=== PATIENT | female | born 1940 | race Caucasian/White ===

== ENCOUNTER 2016-10-30 13:00 | Outpatient (CLI) | payer MEDICARE, OTHER | END 2016-10-30 13:01 | disposition home or self-care (01) | LOC: RT 13:00 | PROVIDERS: ATTEND Internal Medicine | DX: R07.9 Chest pain, unspecified (principal) | CPT/HCPCS: 93005 ==

== ENCOUNTER 2016-11-10 11:11 | Outpatient (CLI) | payer MEDICARE, OTHER ==
[2016-11-10 19:16] LABS: ALBUMIN/GLOBULIN RATIO 1.6 (1.0-2.2); BILIRUBIN,TOTAL 0.6 mg/dL (0.2-1.0); BUN - BLOOD UREA NITROGEN 18 mg/dL (6-20); CALCIUM 9.7 mg/dL (8.5-10.3); CARBON DIOXIDE - CO2 27 mmol/L (21-32); CHLORIDE 104 mmol/L (101-111); CHOL/HDL RATIO 3.3 (<4.4); CHOLESTEROL 277 mg/dL; CREATININE 0.7 mg/dL (0.4-1.0); GFR - MDRD 81 (>89); GLUCOSE 88 mg/dL (70-100); HDL CHOLESTEROL 83 mg/dL; POTASSIUM 4.3 mmol/L (3.5-5.0); SODIUM 139 mmol/L (135-145); TRIGLYCERIDES 140 mg/dL; URIC ACID 4.5 mg/dL (2.6-7.2); VLDL CHOLESTEROL 28 mg/dL
[2016-11-10 19:30] LABS: TOTAL T3 0.86 ng/mL (0.87-1.78)
[2016-11-10 19:39] LABS: THYROID STIMULATING HORMONE 5.32 uIU/mL (0.34-5.60)
[2016-11-12 12:52] LABS: ANA SCREEN NEGATIVE (NEGATIVE)
== END 2016-11-10 11:12 | disposition home or self-care (01) ==
LOC: LAB.F 11:11
PROVIDERS: ATTEND Internal Medicine
DX: E78.4 Other hyperlipidemia (principal); E55.9 Vitamin D deficiency, unspecified; M25.9 Joint disorder, unspecified; E03.9 Hypothyroidism, unspecified; R74.8 Abnormal levels of other serum enzymes
CPT/HCPCS: 36415; 80053; 80061; 82306; 83970; 84439; 84443; 84480; 84550; 86038; 86140; 86376

== ENCOUNTER 2017-08-18 13:53 | Outpatient (CLI) | payer MEDICARE, OTHER ==
--- NOTE | 2017-08-19 15:52 | Mammography Report ---
DIGITAL SCREENING MAMMOGRAM: 08/18/2017 CLINICAL INDICATION: A 77-year-old with history of benign biopsy, for screening. COMPARISON: 07/2016, 07/2015, 06/2014, 05/2013, 05/2012. TECHNIQUE: Routine CC and MLO projections were obtained of the breasts. FINDINGS: The breasts again demonstrate heterogeneously dense fibroglandular parenchyma bilaterally. Coarse, typically benign calcifications are present. Postbiopsy changes in the left breast are stable. No suspicious masses, clustered microcalcifications, or regions of architectural distortion are identified. IMPRESSION: BENIGN FINDINGS. RECOMMENDATION: ROUTINE ANNUAL SCREENING UNLESS OTHERWISE CLINICALLY INDICATED. BIRADS CATEGORY 2-BENIGN FINDINGS. STANDARD QUALIFYING STATEMENTS: 1. This examination was reviewed with the aid of Computer-Aided Detection (CAD). 2. A negative or benign imaging report should not delay biopsy if clinically suspicious findings are present. Consider surgical consultation if warranted. More than 5% of cancers are not identified by imaging. 3. Dense breasts may obscure an underlying neoplasm. TD: 08/19/2017 15:50
== END 2017-08-18 13:54 | disposition home or self-care (01) ==
LOC: DI 13:53
PROVIDERS: ATTEND Internal Medicine
DX: Z12.31 Encounter for screening mammogram for malignant neoplasm of breast (principal)
CPT/HCPCS: 77067

== ENCOUNTER 2018-09-15 15:09 | Outpatient (CLI) | payer MEDICARE, OTHER ==
--- NOTE | 2018-09-16 08:42 | Mammography Report ---
Reason: SCREENING MAMMO Procedure Date: 09/15/2018 Accession Number: [id number] / [id number] Procedure: MELINDA - Screening Mammo w/Francisco CPT Code: FULL RESULT: EXAM: Screening Mammo w/Francisco DATE: 09/15/2018 4:02 PM CLINICAL HISTORY: Screening encounter. No reported risk factors. TECHNIQUE: (B) - Bilateral CC, laterally exaggerated CC, MLO views were obtained. COMPARISON: 08/18/2017 through 06/23/2013. PARENCHYMAL PATTERN: (D) - The breast(s) demonstrate(s) heterogeneously dense fibroglandular parenchyma. FINDINGS: There are coarse typically benign calcifications. A well-circumscribed isodense nodule in the upper central right breast approximately 4.8 cm from the nipple on the 3-D cc image 33 is demonstrated dating back to at least 2013 and therefore typically benign. There are no suspicious masses, calcifications, or areas of distortion. IMPRESSION: Benign findings. BI-RADS category 2. RECOMMENDATION: (ANNUAL) - Recommend routine annual screening mammography. BI-RADS CATEGORY: (2) - Benign Findings. STANDARD QUALIFYING STATEMENTS: 1. This examination was not reviewed with the aid of Computer-Aided Detection (CAD). 2. A negative or benign imaging report should not preclude biopsy if clinically suspicious findings are present. 3. Dense breasts may obscure an underlying neoplasm. 4. This examination was reviewed with the aid of 3D breast imaging (tomosynthesis).
== END 2018-09-15 15:10 | disposition home or self-care (01) ==
LOC: DI 15:09
DX: Z12.31 Encounter for screening mammogram for malignant neoplasm of breast (principal)
CPT/HCPCS: 77063; 77067

== ENCOUNTER 2018-11-09 08:49 | Outpatient (CLI) | payer MEDICARE, OTHER ==
[2018-11-09 09:21] LABS: BASOPHILS # (AUTO) 0.2 10^3/uL (0.0-0.1); BASOPHILS % (AUTO) 2.6 %; EOSINOPHILS # (AUTO) 0.2 10^3/uL (0.0-0.7); EOSINOPHILS % (AUTO) 3.5 %; HGB - HEMOGLOBIN 15.9 g/dL (12.0-16.0); LYMPHOCYTES # (AUTO) 1.8 10^3/uL (1.5-3.5); LYMPHOCYTES % (AUTO) 29.4 %; MEAN CORPUSCULAR HEMOGLOBIN 28.7 pg (27.0-31.0); MEAN CORPUSCULAR HGB CONC 33.2 g/dL (32.0-36.0); MEAN CORPUSCULAR VOLUME 86.4 fL (81.0-99.0); MEAN PLATELET VOLUME 6.4 fL (7.9-10.8); MONOCYTES # (AUTO) 0.4 10^3/uL (0.0-1.0); MONOCYTES % (AUTO) 7.1 %; NEUTROPHILS # (AUTO) 3.5 10^3/uL (1.5-6.6); NEUTROPHILS % (AUTO) 57.4 %; PLT - PLATELET COUNT 268 10^3/uL (130-450); RED BLOOD COUNT 5.54 10^6/uL (4.20-5.40); RED CELL DISTRIBUTION WIDTH 13.3 % (12.0-15.0); WHITE BLOOD COUNT 6.1 x10^3/uL (4.8-10.8)
[2018-11-09 09:37] LABS: HB2 TOTAL 16.4 g/dL; HEMOGLOBIN A1C 0.64 g/dL; HEMOGLOBIN A1C % 5.7 % (4.6-6.2)
[2018-11-09 09:46] LABS: % IRON SATURATION 24 % (20-50); CHOL/HDL RATIO 3.5 (<4.4); CHOLESTEROL 241 mg/dL; HDL CHOLESTEROL 69 mg/dL; IRON 88 ug/dL (28-170); LDL CHOLESTEROL,CALCULATED 147 mg/dL; LDL/HDL RATIO 2.1 (<4.4); TOTAL IRON BINDING CAPACITY 368 ug/dL (250-450); TRANSFERRIN 263 mg/dL (192-382); VLDL CHOLESTEROL 25 mg/dL
[2018-11-09 09:48] LABS: RHEUMATOID FACTOR NEGATIVE (Negative)
[2018-11-09 09:58] LABS: THYROID STIMULATING HORMONE 2.53 uIU/mL (0.34-5.60)
[2018-11-09 10:00] LABS: FREE T4 (FREE THYROXINE) 1.23 ng/dL (0.58-1.64)
[2018-11-09 10:07] LABS: CRP - C-REACTIVE PROTEIN < 1.0 mg/dL (0-1.0)
[2018-11-09 10:09] LABS: FOLATE 17.77 ng/mL (5.90 - >24.8)
== END 2018-11-09 08:50 | disposition home or self-care (01) ==
LOC: LAB 08:49
PROVIDERS: ATTEND Internal Medicine
DX: M13.0 Polyarthritis, unspecified (principal); E55.9 Vitamin D deficiency, unspecified; E03.9 Hypothyroidism, unspecified; R53.83 Other fatigue; E78.01 Familial hypercholesterolemia
CPT/HCPCS: 36415; 80061; 82306; 82607; 82746; 83036; 83540; 83721; 84439; 84443; 84466; 85025; 86140; 86200; 86430

== ENCOUNTER 2019-10-05 17:20 | Outpatient (CLI) | payer MEDICARE, OTHER | END 2019-10-05 17:21 | disposition home or self-care (01) | LOC: COV 17:20 | PROVIDERS: ATTEND Family Medicine | DX: R06.02 Shortness of breath (principal); R53.83 Other fatigue; R19.7 Diarrhea, unspecified; R43.9 Unspecified disturbances of smell and taste | CPT/HCPCS: 81599 ==

== ENCOUNTER 2019-10-13 11:33 | Outpatient (CLI) | payer MEDICARE, OTHER ==
--- NOTE | 2019-10-13 23:47 | XRAY Report ---
Reason: UNABLE TO TAKE DEEP BREATH,DYSPNEA, UNSPECIFIED Procedure Date: 10/13/2019 Accession Number: [id number] / [id number] Procedure: XR - Chest 2 View X-Ray CPT Code: 51037 Final Report FULL RESULT: EXAM: CHEST RADIOGRAPHY EXAM DATE: 10/13/2019 11:42 AM. CLINICAL HISTORY: UNABLE TO TAKE DEEP BREATH, DYSPNEA, UNSPECIFIED. COMPARISON: None. TECHNIQUE: 2 views. FINDINGS: Lungs/Pleura: No consolidation, airspace disease, pleural effusion or pneumothorax. Mild left base linear atelectasis or scarring. Mediastinum: Heart and mediastinal contours are unremarkable. IMPRESSION: No acute cardiopulmonary disease seen. RADIA
== END 2019-10-13 11:34 | disposition home or self-care (01) ==
LOC: DI 11:33
PROVIDERS: ATTEND Family Medicine
DX: R06.00 Dyspnea, unspecified (principal)
CPT/HCPCS: 71046

== ENCOUNTER 2019-10-19 09:13 | Emergency (ER) | payer MEDICARE, OTHER ==
[2019-10-19] MEDS ORDERED: ALBUTEROL 1 PUFF INH STA (09:35)
[2019-10-19] MEDS ORDERED: DEXAMETHASONE 10 MG/ML VIAL IVP STA (09:35)
--- NOTE | 2019-10-19 09:38 | ED Physician Documentation ---
PD HPI DYSPNEA - Stated complaint Stated Complaint: SOA/CHEST PX - Chief complaint Chief Complaint: Resp - History obtained from History obtained from: Patient - History of Present Illness Timing - onset: How many months ago (2) Timing - onset during: Rest Timing - duration: Months (2) Timing - details: Gradual onset, Still present, Waxing and waning Inciting event(s): URI Improved by: Rest Worsened by: Exertion, Coughing Associated symptoms: Cough, Wheezing, Chest pain / discomfort. No: Hemoptysis, Bilateral edema, Unilateral edema Similar symptoms before: No diagnosis Recently seen: Clinic - Additional information Additional information: 79-year-old female has had a problem with a cough and congestion for the past 2 months. She is complaining of exertional dyspnea and wheezing especially at night as well as some anterior chest pain. She has not had these symptoms previously. She has gone into see her primary care physician after getting a negative COVID test and had a chest x-ray done chest x-ray was reported as normal. She did have some linear atelectasis in the left base. Diagnostic pulmonary function tests have been ordered and they have not been done yet. Patient has persistence of symptoms and is come to the emergency department today with shortness of breath and chest pain. PD PAST MEDICAL HISTORY - Past Surgical History Past Surgical History: Yes Ortho: Hip replacement, Knee replacement, Spine surgery - Present Medications Home Medications: Ambulatory Orders Medication Instructions Recorded Confirmed Aspirin [Adult Low Dose Aspirin EC] 81 mg PO DAILY 03/27/17 03/27/17 Lactulose [Generlac] 15 ml PO QID PRN #150 ml 03/27/17 Levothyroxine [Synthroid] 88 mcg PO DAILY 03/27/17 03/27/17 Magnesium Oxide [Magnesium] 400 mg PO DAILY 03/27/17 03/27/17 Omeprazole [PriLOSEC] 20 mg PO DAILY 03/27/17 03/27/17 Zolpidem [Ambien] 5 mg PO DAILY 03/27/17 03/27/17 oxyCODONE [Roxicodone] 5 mg PO QID PRN 03/27/17 03/27/17 Albuterol Sulf [Ventolin Hfa 1 - 2 puffs INH Q4HR PRN #1 inhaler 10/19/19 Inhaler] Azithromycin [Zithromax] 250 mg PO DAILY #6 tablet 10/19/19 predniSONE [Prednisone] 40 mg PO DAILY #10 tablet 10/19/19 - Allergies Allergies/Adverse Reactions: Allergies Allergy/AdvReac Type Severity Reaction Status Date / Time diazepam [From Valium] Allergy Unknown Verified 03/27/17 18:06 meperidine [From Demerol] Allergy Anaphylaxis Verified 03/27/17 18:06 epinephrine AdvReac Unknown Verified 03/27/17 18:06 - Social History Does the pt smoke?: No Smoking Status: Never smoker Does the pt drink ETOH?: No Does the pt have substance abuse?: No Results - Vitals Vitals: Vital Signs - 24 hr 10/19/19 10/19/19 10/19/19 09:26 09:30 09:47 Temperature 36.8 C Heart Rate 88 89 70 Respiratory 16 19 17 Rate Blood Pressure 152/82 H 153/81 H O2 Saturation 99 98 10/19/19 10/19/19 10/19/19 11:14 11:29 11:34 Temperature 527.7 C H Heart Rate 72 78 80 Respiratory 18 21 16 Rate Blood Pressure 139/79 H 135/87 H 142/75 H O2 Saturation 95 95 96 Oxygen O2 Source Room air - EKG (time done) 0922 Rate: Rate (enter#) (87) Intervals: Prolonged AL QRS: Poor R wave progression Ischemia: Q waves Compare to prior EKG: Changed from prior EKG (SPT 10-30-2016 AL interval is prolonged. ) Computer interpretation: Agree with computer - Labs Labs: Laboratory Tests 10/19/19 10/19/19 10/19/19 09:28 09:28 09:28 WBC 6.6 RBC 5.27 Hgb 15.4 Hct 46.4 MCV 88.0 MCH 29.2 MCHC 33.2 RDW 13.1 Plt Count 242 MPV 8.7 Neut # (Auto) 4.2 Lymph # (Auto) 1.5 [place] # (Auto) 0.4 Eos # (Auto) 0.3 Baso # (Auto) 0.1 Absolute Nucleated RBC 0.00 Nucleated RBC % 0.0 D-Dimer Sodium 136 Potassium 3.8 Chloride 106 Carbon Dioxide 21 Anion Gap 9.0 BUN 16 Creatinine 0.7 Estimated GFR (MDRD) 81 L Glucose 124 H Calcium 8.9 Total Bilirubin 0.7 AST 25 ALT 17 Alkaline Phosphatase 104 Troponin I High Sens 3.4 B-Natriuretic Peptide Total Protein 6.8 Albumin 3.8 Globulin 3.0 Albumin/Globulin Ratio 1.3 Lipase 43 10/19/19 10/19/19 09:28 09:28 WBC RBC Hgb Hct MCV MCH MCHC RDW Plt Count MPV Neut # (Auto) Lymph # (Auto) [place] # (Auto) Eos # (Auto) Baso # (Auto) Absolute Nucleated RBC Nucleated RBC % D-Dimer 259.3 H Sodium Potassium Chloride Carbon Dioxide Anion Gap BUN Creatinine Estimated GFR (MDRD) Glucose Calcium Total Bilirubin AST ALT Alkaline Phosphatase Troponin I High Sens B-Natriuretic Peptide 42 Total Protein Albumin Globulin Albumin/Globulin Ratio Lipase - Rads (name of study) chest Radiology: Prelim report reviewed (Impression: No acute cardiopulmonary abnormality demonstrated.), EMP read indepedently, See rad report PD MEDICAL DECISION MAKING - ED course Complexity details: reviewed old records, reviewed results, re-evaluated patient, considered differential, d/w patient ED course: 79-year-old female with cough and dyspnea has a normal-appearing chest x-ray and has some mild response to the albuterol. She is administered dexamethasone as well. She does feel improved at the time of discharge. We were not able to provide pulmonary function testing as there are only 2 spots per day and testing can take up to 2 hours. I will discharge the patient with a diagnosis of asthmatic bronchitis and provide an inhaler, a short course of prednisone and azithro. Departure - Departure Disposition: 01 Home, Self Care Clinical Impression: Asthmatic bronchitis Qualifiers: Asthma severity: mild Asthma persistence: intermittent Asthma complication type: with acute exacerbation Qualified Code(s): J45.21 - Mild intermittent asthma with (acute) exacerbation Condition: Stable Instructions: ED Bronchitis Asthmatic Follow-Up: Lui Lan MD [Primary Care Provider] - Prescriptions: Albuterol Sulf [Ventolin Hfa Inhaler] 1 - 2 puffs INH Q4HR PRN #1 inhaler PRN Reason: Shortness Of Air/Wheezing Azithromycin [Zithromax] 250 mg PO DAILY #6 tablet predniSONE [Prednisone] 40 mg PO DAILY #10 tablet Discharge Date/Time: 10/19/19 11:35
[2019-10-19 09:40] LABS: BASOPHILS # (AUTO) 0.1 10^3/uL (0.0-0.1); BASOPHILS % (AUTO) 0.9 %; EOSINOPHILS # (AUTO) 0.3 10^3/uL (0.0-0.7); EOSINOPHILS % (AUTO) 4.4 %; HGB - HEMOGLOBIN 15.4 g/dL (12.0-16.0); LYMPHOCYTES # (AUTO) 1.5 10^3/uL (1.5-3.5); LYMPHOCYTES % (AUTO) 23.3 %; MEAN CORPUSCULAR HEMOGLOBIN 29.2 pg (27.0-31.0); MEAN CORPUSCULAR HGB CONC 33.2 g/dL (32.0-36.0); MEAN PLATELET VOLUME 8.7 fL (7.9-10.8); MONOCYTES # (AUTO) 0.4 10^3/uL (0.0-1.0); MONOCYTES % (AUTO) 6.5 %; NEUTROPHILS # (AUTO) 4.2 10^3/uL (1.5-6.6); NEUTROPHILS % (AUTO) 64.6 %; PLT - PLATELET COUNT 242 10^3/uL (130-450); RED BLOOD COUNT 5.27 10^6/uL (4.20-5.40); RED CELL DISTRIBUTION WIDTH 13.1 % (12.0-15.0); WHITE BLOOD COUNT 6.6 x10^3/uL (4.8-10.8)
[2019-10-19 09:54] LABS: ALBUMIN 3.8 g/dL (3.2-5.5); ALBUMIN/GLOBULIN RATIO 1.3 (1.0-2.2); BILIRUBIN,TOTAL 0.7 mg/dL (0.2-1.0); CALCIUM 8.9 mg/dL (8.5-10.3); CREATININE 0.7 mg/dL (0.4-1.0); TOTAL PROTEIN 6.8 g/dL (6.7-8.2)
--- NOTE | 2019-10-19 10:13 | XRAY Report ---
Reason: Chest pain Procedure Date: 10/19/2019 Accession Number: [id number] / [id number] Procedure: XR - Chest 1 View X-Ray CPT Code: 17043 Final Report FULL RESULT: EXAM: CHEST RADIOGRAPHY EXAM DATE: 10/19/2019 09:39 AM. CLINICAL HISTORY: Chest pain. COMPARISON: CHEST 2 VIEW 10/13/2019 11:37 AM. TECHNIQUE: 1 view. FINDINGS: Lungs/Pleura: No focal opacities evident. No pleural effusion. No pneumothorax. Mediastinum: Within exam limitations, the cardiomediastinal contour is normal. Other: None. IMPRESSION: No acute cardiopulmonary abnormality demonstrated. RADIA
[2019-10-19 11:35] VITALS: BP 142/75
== END 2019-10-19 11:35 | disposition home or self-care (01) ==
LOC: ED 09:13
DX: J45.21 Mild intermittent asthma with (acute) exacerbation (principal); I44.0 Atrioventricular block, first degree; Z79.82 Long term (current) use of aspirin
CPT/HCPCS: 36415; 71045; 80053; 83690; 83880; 84484; 85025; 85379; 93005; 94640; 96374; 99281

== ENCOUNTER 2019-10-22 12:16 | Outpatient (CLI) | payer MEDICARE, OTHER ==
[~2019-10-22 12:16] MED LIST: ALBUTEROL 1 PUFF INH STA
== END 2019-10-22 12:17 | disposition home or self-care (01) ==
LOC: RT 12:16
PROVIDERS: ATTEND Family Medicine
DX: R06.00 Dyspnea, unspecified (principal)
CPT/HCPCS: 94010

== ENCOUNTER 2019-12-12 12:25 | Outpatient (CLI) | payer MEDICARE, OTHER ==
--- NOTE | 2019-12-14 07:08 | Mammography Report ---
BILATERAL DIGITAL SCREENING MAMMOGRAM 3D/2D: 12/12/2019 CLINICAL: Routine screening. Comparison is made to exams dated: 09/15/2018 mammogram, 08/18/2017 mammogram, 08/12/2016 mammogram, an d 07/31/2015 mammogram - [facility]. The tissue of both breasts is heterogeneously d ense. This may lower the sensitivity of mammography. There is a benign calcification in the left breast. There also are benign calcifications in the righ t breast. No significant masses, calcifications, or other findings are seen in either breast. There has been no significant interval change. IMPRESSION: There is no mammographic evidence of malignancy. A 1 year screening mammogram is recommended. This exam was interpreted at Station ID: [id number]. NOTE: For mammograms, a report in lay terms will be sent to the patient. Approximately 15% of breast malignancies will not be visualized mammographically. In the management of a palpable breast mass, a negative mammogram must not discourage biopsy of a clinically suspicious lesion. Electronically Signed By: Tricia lockett/damián:12/12/2019 16:55:31 ACR BI-RADS Category 2: Benign Finding(s) 3342F PARENCHYMAL PATTERN: (D) - The breast(s) demonstrate(s) heterogeneously dense fibroglandular martine roth. BI-RADS CATEGORY: (2) - 2 RECOMMENDATION: (ANNUAL) - Recommend routine annual screening mammography. [id number] 1 year screening LATERALITY: (B)
== END 2019-12-12 12:26 | disposition home or self-care (01) ==
LOC: DI 12:25
PROVIDERS: ATTEND Family Medicine
DX: Z12.31 Encounter for screening mammogram for malignant neoplasm of breast (principal)
CPT/HCPCS: 77063; 77067

== ENCOUNTER 2020-05-09 14:25 | Outpatient (CLI) | payer MEDICARE, OTHER ==
--- NOTE | 2020-05-09 16:30 | XRAY Report ---
PROCEDURE: Cervical Spine 2 View INDICATIONS: ACUTE ON CHRONIC NECK PAIN,HX OF O A TECHNIQUE: 4 view(s) of the cervical spine were acquired. COMPARISON: None. FINDINGS: Bones: No fractures or dislocations to the C7 level. Disc space narrowing and endplate osteophyte fo rmation at multiple levels, worst at C3-C4, C4-C5, and C6-C7 indicating degenerative disc disease. Fa cet hypertrophy throughout the mid and lower cervical spine. The lateral masses of C1 appear intact o n the odontoid view. No suspicious bony lesions. Soft tissues: No prevertebral soft tissue swelling. IMPRESSION: 1. Multilevel degenerative disc and facet disease. 2. No acute fracture. No osseous lesion. If symptoms and/or clinical suspicion for pathology continue , further assessment with repeat plain films, or advanced imaging (e.g., CT, MRI, or bone scan) is re commended for further assessment. Reviewed by: Ricardo Montoya MD on 05/09/2020 4:29 PM PST Approved by: Ricardo Montoya MD on 05/09/2020 4:29 PM PST Station ID: [id number]
== END 2020-05-09 14:26 | disposition home or self-care (01) ==
LOC: DI 14:25
PROVIDERS: ATTEND Family Medicine
DX: M50.31 Other cervical disc degeneration, high cervical region (principal)

== ENCOUNTER 2020-09-12 14:56 | Outpatient (CLI) | payer MEDICARE, OTHER ==
--- NOTE | 2020-09-12 15:46 | XRAY Report ---
PROCEDURE: Ankle 3 View RT INDICATIONS: TWISTED R ANKLE, LAT SIDED PAIN TECHNIQUE: 3 views of the ankle were acquired. COMPARISON: None. FINDINGS: Diffuse osteopenia. No fracture. Scattered subchondral sclerosis and spurring. Lateral soft tissue sw elling is present. There is anatomic alignment. Diffuse midfoot joint degeneration, raising possibili ty of neuropathic arthropathy. IMPRESSION: Lateral soft tissue swelling. No fracture. Diffuse osteopenia and degenerative changes a s above. Reviewed by: Chacorta Zaragoza MD on 09/12/2020 3:45 PM PDT Approved by: Chacorta Zaragoza MD on 09/12/2020 3:45 PM PDT Station ID: [id number]
== END 2020-09-12 14:57 | disposition home or self-care (01) ==
LOC: DI 14:56
PROVIDERS: ATTEND Physician Assistant
DX: M85.871 Other specified disorders of bone density and structure, right ankle and foot (principal); M19.071 Primary osteoarthritis, right ankle and foot; M79.89 Other specified soft tissue disorders

== ENCOUNTER 2021-02-19 13:34 | Outpatient (CLI) | payer MEDICARE, OTHER ==
--- NOTE | 2021-02-20 09:35 | Mammography Report ---
BILATERAL DIGITAL SCREENING MAMMOGRAM 3D/2D: 02/19/2021 CLINICAL: Routine screening. Comparison is made to exams dated: 12/12/2019 mammogram, 09/15/2018 mammogram, 09/15/2018 mammogram, mammogram, 08/18/2017 mammogram, and 08/12/2016 mammogram - [facility]. The tissue of both breasts is heterogeneously dense. This may lower the sensitivity of mammography. There is a benign calcification in the left breast. There also are benign calcifications in the righ t breast. No significant masses, calcifications, or other findings are seen in either breast. There has been no significant interval change. IMPRESSION: BENIGN There is no mammographic evidence of malignancy. A 1 year screening mammogram is recommended. This exam was interpreted at Station ID: [id number]. NOTE: For mammograms, a report in lay terms will be sent to the patient. Approximately 15% of breast malignancies will not be visualized mammographically. In the management of a palpable breast mass, a negative mammogram must not discourage biopsy of a clinically suspicious lesion. Electronically Signed By: Kale Ham M.D. ddp/penrad:02/19/2021 16:17:45 ACR BI-RADS Category 2: Benign Finding(s) 3342F PARENCHYMAL PATTERN: (D) - The breast(s) demonstrate(s) heterogeneously dense fibroglandular parbjy gonzalez. BI-RADS CATEGORY: (2) - 2 RECOMMENDATION: (ANNUAL) - Recommend routine annual screening mammography. [id number] 1 year screening LATERALITY: (B)
== END 2021-02-19 13:35 | disposition home or self-care (01) ==
LOC: DI 13:34
DX: Z12.31 Encounter for screening mammogram for malignant neoplasm of breast (principal)

== ENCOUNTER 2021-10-16 16:08 | Emergency (ER) | payer MEDICARE, OTHER ==
[2021-10-16 16:19] VITALS: BP 134/72
[2021-10-16] MEDS ORDERED: NAPROXEN 250 MG TABLET PO STA (16:44)
--- NOTE | 2021-10-16 16:45 | ED Physician Documentation ---
PD HPI LOWER EXT INJURY - Stated complaint Stated Complaint: L ANKLE INJ - Chief complaint Chief Complaint: Trauma Ext - History obtained from History obtained from: Patient (She was in [place] yesterday and had a trip and fall injuring her left ankle. No other injuries. She is able to walk and bear weight but with significant pain.) - History of Present Illness PD HPI LOW EXT INJURY LOCATION: Left Review of Systems Eyes: reports: Reviewed and negative Nose: reports: Reviewed and negative Cardiac: reports: Reviewed and negative Respiratory: reports: Reviewed and negative PD PAST MEDICAL HISTORY - Past Medical History Endocrine/Autoimmune: HyPOthyroidism - Past Surgical History Past Surgical History: Yes Ortho: Hip replacement, Knee replacement, Spine surgery - Present Medications Home Medications: Ambulatory Orders Medication Instructions Recorded Confirmed Aspirin [Adult Low Dose Aspirin EC] 81 mg PO DAILY 03/27/17 03/27/17 Lactulose [Generlac] 15 ml PO QID PRN #150 ml 03/27/17 Levothyroxine [Synthroid] 88 mcg PO DAILY 03/27/17 03/27/17 Magnesium Oxide [Magnesium] 400 mg PO DAILY 03/27/17 03/27/17 Omeprazole [PriLOSEC] 20 mg PO DAILY 03/27/17 03/27/17 Zolpidem [Ambien] 5 mg PO DAILY 03/27/17 03/27/17 oxyCODONE [Roxicodone] 5 mg PO QID PRN 03/27/17 03/27/17 Albuterol Sulf [Ventolin Hfa 1 - 2 puffs INH Q4HR PRN #1 inhaler 10/19/19 Inhaler] Azithromycin [Zithromax] 250 mg PO DAILY #6 tablet 10/19/19 predniSONE [Prednisone] 40 mg PO DAILY #10 tablet 10/19/19 - Allergies Allergies/Adverse Reactions: Allergies Allergy/AdvReac Type Severity Reaction Status Date / Time diazepam [From Valium] Allergy Unknown Verified 10/16/21 16:14 meperidine [From Demerol] Allergy Anaphylaxis Verified 10/16/21 16:14 epinephrine AdvReac Unknown Verified 10/16/21 16:14 - Social History Does the pt smoke?: No Smoking Status: Never smoker Does the pt drink ETOH?: No Does the pt have substance abuse?: No PD ED PE NORMAL - Vitals Vital signs reviewed: Yes - General General: Alert and oriented X 3, No acute distress - Neck Neck: No bony TTP, C-Spine cleared by NEXUS criteria - Extremities Extremities: Other (Significant bruising over the lateral malleolus and quite tender there. Minimal tenderness over the minimal medial malleolus but she is also tender over the proximal fibula on the left.) - Neuro Neuro: Alert and oriented X 3, Normal speech Results - Vitals Vitals: Vital Signs - 24 hr 10/16/21 16:16 Temperature 36.7 C Heart Rate 93 Respiratory 18 Rate Blood Pressure 134/72 H O2 Saturation 95 Oxygen O2 Source Room air - Rads (name of study) X-rays of the left tib-fib and ankle suggestive of talar dome fracture and ligamentous injury in the ankle Radiology: EMP read contemporaneously PD MEDICAL DECISION MAKING - ED course ED course: 81-year-old woman presents after an isolated left leg injury and is found to have a talar dome fracture and was placed in a boot for comfort and discussed need for follow-up. Departure - Departure Disposition: 01 Home, Self Care Clinical Impression: Talus fracture Qualifiers: Encounter type: initial encounter Fracture type: closed Talus location: dome of talus Fracture alignment: nondisplaced Laterality: left Qualified Code(s): S92.145A - Nondisplaced dome fracture of left talus, initial encounter for closed fracture Left ankle sprain Qualifiers: Encounter type: initial encounter Involved ligament of ankle: deltoid ligament Qualified Code(s): S93.422A - Sprain of deltoid ligament of left ankle, initial encounter Condition: Good Record reviewed to determine appropriate education?: Yes Instructions: ED Sprain Ankle Follow-Up: [facility] [Provider Group] Comments: Follow-up with orthopedics in about a week. You can wear the boot as needed for comfort, okay to gingerly walk on that ankle. Aleve as needed for pain. Call the orthopedics office tomorrow. Ice and elevate is much as possible.
--- NOTE | 2021-10-16 16:47 | XRAY Report ---
PROCEDURE: Ankle 3 View LT INDICATIONS: TRAUMA TECHNIQUE: 3 views of the ankle were acquired. COMPARISON: None FINDINGS: Bones: Tiny cortical step-off noted in the talar dome which could represent osteochondral injury. Ank le mortise is normally aligned. No suspicious bony lesions. Calcaneal bone spurs. Midfoot osteoarthr itis. Soft tissues: No tibiotalar joint effusion. Achilles tendon appears normal. Lateral soft tissue swe lling is noted and ligamentous injury cannot be excluded. IMPRESSION: 1. Tiny cortical step-off involving the talar dome concerning for osteochondral injury. 2. Severe lateral soft tissue swelling concerning for possible ligamentous injury. Consider MRI of th e left ankle for additional evaluation of clinically indicated. Reviewed by: Ame Stone MD, PhD on 10/16/2021 4:46 PM PDT Approved by: Ame Stone MD, PhD on 10/16/2021 4:46 PM PDT Station ID: [id number]
--- OUTSIDE RECORDS SUMMARY | 2021-10-16 16:53 | EXTERNAL MEDICAL SUMMARY RPT | Continuity of Care Document ---
:1940 Author Organization [facility] Address [address] [place] [address] Phone Care Team Providers Name Role Phone Lan Unavailable Unavailable Allergies No information. Encounters No information. Medications date description facility [id number] Levothyroxine Sodium 0.1 MG Oral Tablet [facility] Problems Procedures date description facility [id number] General Physician [facility] [id number] Finding [facility] [id number] Diagnosis [facility] Results No information. Vital Signs date measurement value source 20210911 weight_standard 66.22 lb [id number] weight_metric 30.04 kg 20210911 temperature_standard 98.7 F 20210911 temperature_metric 37.06 C 20210911 height_standard 62 in [id number] height_metric 157.48 cm 20210911 heart_rate 88 /min 20210911 BP_systolic 138 mm[Hg] 20210911 BP_diastolic 70 mm[Hg] 20210911 BMI 26.6 kg/m2
--- NOTE | 2021-10-16 18:01 | XRAY Report ---
PROCEDURE: Tib/Fib LT INDICATIONS: Trauma, pain TECHNIQUE: 2 views of the tibia and fibula were acquired. COMPARISON: FINDINGS: Bones: No fractures or dislocations. No suspicious bony lesions. Small cortical defect in the miguel angel r dome again noted. Soft tissues: No suspicious soft tissue calcifications or masses. IMPRESSION: Unremarkable tibia and fibula radiographs Small cortical defect in the talar dome may reflect osteochondral injury Reviewed by: Parveen Rojas MD on 10/16/2021 5:00 PM DIONY Approved by: Parveen Rojas MD on 10/16/2021 5:00 PM DIONY Station ID: [id number]
== END 2021-10-16 17:40 | disposition home or self-care (01) ==
LOC: ED 16:08
DX: S92.145A Nondisplaced dome fracture of left talus, initial encounter for closed fracture (principal); S93.422A Sprain of deltoid ligament of left ankle, initial encounter; W01.0XXA Fall on same level from slipping, tripping and stumbling without subsequent striking against object, initial encounter
CPT/HCPCS: 73590; 73610; 99283; A9270

== ENCOUNTER 2021-10-28 06:00 | Outpatient (CLI) | payer MEDICARE, OTHER ==
--- NOTE | 2021-10-28 14:22 | XRAY Report ---
PROCEDURE: Ankle 3 View LT INDICATIONS: ANKLE PAIN TECHNIQUE: 3 views of the ankle were acquired. COMPARISON: Left ankle radiographs 10/16/2021 FINDINGS: Bones: Cortical irregularity at the distal fibula at the level of the syndesmosis. This is concerning for nondisplaced fracture. Subtle lucency at the talar dome is again seen. Ankle mortise is normall y aligned. No suspicious bony lesions. Soft tissues: There is decrease swelling at the lateral malleolus. No significant tibiotalar joint e ffusion. Achilles tendon appears normal. IMPRESSION: Concern for nondisplaced fracture at the distal fibula. Edwards B fracture. Decrease swelling at the la teral malleolus. Subtle lucency at the talar dome is again seen. This could be due to osteochondral injury. Consider further evaluation with CT or MRI. Reviewed by: Mansoor Batres MD on 10/28/2021 2:21 PM PDT Approved by: Mansoor Batres MD on 10/28/2021 2:21 PM PDT Station ID: [id number]
== END 2021-10-28 23:59 | disposition home or self-care (01) ==
LOC: DI.WOS 06:00
PROVIDERS: ATTEND Orthopaedic Surgery
DX: M25.572 Pain in left ankle and joints of left foot (principal); R60.0 Localized edema

== ENCOUNTER 2021-11-26 08:00 | Outpatient (CLI) | payer MEDICARE, OTHER ==
--- NOTE | 2021-11-26 17:29 | XRAY Report ---
PROCEDURE: Ankle 3 View LT INDICATIONS: ANKLE PX TECHNIQUE: 3 views of the ankle were acquired. COMPARISON: 10/28/2021 FINDINGS: Bones: Minimally displaced, subacute fracture of the lateral malleolus redemonstrated. Lucency in the talar dome is stable. Calcaneal bone spurs. Soft tissues: No tibiotalar joint effusion. Achilles tendon appears normal. IMPRESSION: Subacute lateral malleolus fracture. Lucency in the talar dome stable compared to prior exam may represent osteochondral injury. Consider MRI of the left ankle if there is clinical concern for osteochondral injury. Reviewed by: Ame Stone MD, PhD on 11/26/2021 5:28 PM PDT Approved by: Ame Stone MD, PhD on 11/26/2021 5:28 PM PDT Station ID: [id number]
== END 2021-11-26 23:59 | disposition home or self-care (01) ==
LOC: DI.WOS 08:00
PROVIDERS: ATTEND Orthopaedic Surgery
DX: S82.62XA Displaced fracture of lateral malleolus of left fibula, initial encounter for closed fracture (principal)

== ENCOUNTER 2022-06-13 11:30 | Emergency (ER) | payer MEDICARE, OTHER ==
[2022-06-13 12:04] LABS: BILIRUBIN,URINE NEGATIVE (NEGATIVE); GLUCOSE, URINE (UA) NEGATIVE (NEGATIVE); KETONES,URINE (UA) NEGATIVE (NEGATIVE); LEUKOCYTE ESTERASE, URINE SMALL (NEGATIVE); NITRITE,URINE NEGATIVE (NEGATIVE); OCCULT BLOOD,URINE LARGE (NEGATIVE); PROTEIN,URINE NEGATIVE (NEGATIVE); UROBILINOGEN,URINE 0.2 (NORMAL) E.U./dL (NORMAL)
[2022-06-13 12:05] LABS: CLARITY,URINE HAZY (CLEAR)
[2022-06-13 12:10] LABS: BACTERIA,URINE Few /HPF (None Seen); SQUAMOUS EPITHELIAL CELL,UR FEW Squamous (<= Few); WBC,URINE >25 /HPF (0-5)
[2022-06-13] MEDS ORDERED: cephALEXin 250 MG CAPSULE PO STA (12:32)
[2022-06-13] MEDS ORDERED: PHENAZOPYRIDINE 100 MG TABLET PO STA (12:32)
--- NOTE | 2022-06-13 12:33 | ED Physician Documentation ---
History of Present Illness - Stated complaint Stated Complaint: BLOOD ON URINE - Chief complaint Chief Complaint: UTI - History obtained from History obtained from: Patient - History of Present Illness Timing: Yesterday Pain level max: 4 Pain level now: 3 - Additonal information Additional information: 81-year-old female presents to the emergency department complaining of dysuria, urinary frequency and hematuria, started last night. No fevers. No vomiting. Has a burning sensation in her bladder. Worse with urination, nothing makes it better. She states she has not currently on any medications at home. Has not been on any recent antibiotics. Review of Systems Constitutional: denies: Fever, Chills GI: denies: Vomiting, Diarrhea Skin: denies: Rash Musculoskeletal: denies: Neck pain, Back pain Neurologic: denies: Headache PD PAST MEDICAL HISTORY - Past Medical History Past Medical History: Yes Endocrine/Autoimmune: HyPOthyroidism - Past Surgical History Past Surgical History: Yes Ortho: Hip replacement, Knee replacement, Spine surgery - Present Medications Home Medications: Ambulatory Orders Medication Instructions Recorded Confirmed Aspirin [Adult Low Dose Aspirin EC] 81 mg PO DAILY 03/27/17 03/27/17 Lactulose [Generlac] 15 ml PO QID PRN #150 ml 03/27/17 Levothyroxine [Synthroid] 88 mcg PO DAILY 03/27/17 03/27/17 Magnesium Oxide [Magnesium] 400 mg PO DAILY 03/27/17 03/27/17 Omeprazole [PriLOSEC] 20 mg PO DAILY 03/27/17 03/27/17 Zolpidem [Ambien] 5 mg PO DAILY 03/27/17 03/27/17 oxyCODONE [Roxicodone] 5 mg PO QID PRN 03/27/17 03/27/17 Albuterol Sulf [Ventolin Hfa 1 - 2 puffs INH Q4HR PRN #1 inhaler 10/19/19 Inhaler] Azithromycin [Zithromax] 250 mg PO DAILY #6 tablet 10/19/19 predniSONE [Prednisone] 40 mg PO DAILY #10 tablet 10/19/19 Phenazopyridine HCl [Pyridium] 200 mg PO TID PRN #6 tablet 06/13/22 cephALEXin [Keflex] 500 mg PO Q6H #20 cap 06/13/22 - Allergies Allergies/Adverse Reactions: Allergies Allergy/AdvReac Type Severity Reaction Status Date / Time diazepam [From Valium] Allergy Unknown Verified 06/13/22 11:42 meperidine [From Demerol] Allergy Anaphylaxis Verified 06/13/22 11:42 epinephrine AdvReac Unknown Verified 06/13/22 11:42 - Social History Does the pt smoke?: No Smoking Status: Never smoker Does the pt drink ETOH?: No Does the pt have substance abuse?: No PD ED PE NORMAL - Vitals Vital signs reviewed: Yes - General General: Alert and oriented X 3, No acute distress - HEENT HEENT: Moist mucous membranes - Neck Neck: Supple, no meningeal sign - Cardiac Cardiac: RRR, Strong equal pulses - Respiratory Respiratory: No respiratory distress, Clear bilaterally - Abdomen Abdomen: Soft, Non tender, Non distended - Back Back: No CVA TTP - Derm Derm: Warm and dry - Neuro Neuro: Alert and oriented X 3 - Psych Psych: Normal mood, Normal affect Results - Vitals Vitals: Vital Signs - 24 hr 06/13/22 11:38 Temperature 36.4 C L Heart Rate 100 Respiratory 20 Rate Blood Pressure 146/80 H O2 Saturation 99 Oxygen O2 Source Room air - Labs Labs: Laboratory Tests 06/13/22 11:50 Urine Color YELLOW Urine Clarity HAZY Urine pH 6.0 Ur Specific [place] <=1.005 Urine Protein NEGATIVE Urine Glucose (UA) NEGATIVE Urine Ketones NEGATIVE Urine Occult Blood LARGE H Urine Nitrite NEGATIVE Urine Bilirubin NEGATIVE Urine Urobilinogen 0.2 (NORMAL) Ur Leukocyte Esterase SMALL H Urine RBC 6-10 H Urine WBC >25 H Ur Squamous Epith Cells FEW Squamous Urine Bacteria Few Ur Microscopic Review INDICATED Urine Culture Comments INDICATED PD Medical Decision Making - ED course Complexity details: reviewed results, considered differential, d/w patient ED course: Patient with a urinalysis that is consistent with UTI. Will place on Pyridium and antibiotics. Patient is well-appearing, nontoxic. No evidence of pyelonephritis, no indication for IV antibiotics. No evidence of sepsis. Patient counseled regarding signs and symptoms for which I believe and urgent re-evaluation would be necessary. Patient with good understanding of and agreement to plan and is comfortable going home at this time This document was made in part using voice recognition software. While efforts are made to proofread this document, sound alike and grammatical errors may occur. Departure - Departure Disposition: 01 Home, Self Care Clinical Impression: Urinary tract infection Qualifiers: Urinary tract infection type: acute cystitis Hematuria presence: with hematuria Qualified Code(s): N30.01 - Acute cystitis with hematuria Condition: Good Instructions: ED UTI Cystitis Female Follow-Up: Mathew Lunsford MD [Primary Care Provider] - Within 1 week Prescriptions: cephALEXin [Keflex] 500 mg PO Q6H #20 cap Phenazopyridine HCl [Pyridium] 200 mg PO TID PRN #6 tablet PRN Reason: dysuria Comments: Your prescriptions were sent to [facility] in [place]. Please follow up with your doctor for further care. Take all antibiotics until gone.
[2022-06-13 12:49] VITALS: BP 138/78
== END 2022-06-13 13:04 | disposition home or self-care (01) ==
LOC: ED 11:30
DX: N30.01 Acute cystitis with hematuria (principal)
CPT/HCPCS: 81001; 87086; 99283; A9270; 81003

== ENCOUNTER 2022-08-19 09:51 | Outpatient (CLI) | payer MEDICARE, OTHER ==
--- NOTE | 2022-08-20 10:04 | Mammography Report ---
BILATERAL DIGITAL SCREENING MAMMOGRAM 3D/2D: 08/19/2022 CLINICAL: Routine screening. Comparison is made to exams dated: 02/19/2021 mammogram, 12/12/2019 mammogram, 09/15/2018 mammogram, mammogram, 08/18/2017 mammogram, and 08/18/2017 mammogram - [facility]. Both breasts are heterogeneously dense, which may obscure small masses (category c / 51-75% glandular tissue). There is a benign calcification in the left breast. There also are benign calcifications in the righ t breast. No significant masses, calcifications, or other findings are seen in either breast. There has been no significant interval change. IMPRESSION: BENIGN There is no mammographic evidence of malignancy. A 1 year screening mammogram is recommended. Based on the Tyrer Cuzick model (a risk assessment model) the patients lifetime risk is 0.5% and her 10 year risk is 0.0%. According to the ACR, ACS, and NCCN guidelines, an annual breast MRI exam venice g with mammogram is recommended if the patients lifetime risk is 20% or greater. This exam was interpreted at Station ID: [id number]. NOTE: For mammograms, a report in lay terms will be sent to the patient. Approximately 15% of breast malignancies will not be visualized mammographically. In the management of a palpable breast mass, a negative mammogram must not discourage biopsy of a clinically suspicious lesion. Electronically Signed By: Tricia lockett/damián:08/19/2022 18:03:20 letter sent: No_Letter ACR BI-RADS Category 2: Benign Finding(s) 3342F PARENCHYMAL PATTERN: (D) - The breast(s) demonstrate(s) heterogeneously dense fibroglandular parenchy ma. BI-RADS CATEGORY: (2) - 2 Mammogram [id number] 1 year screening LATERALITY: (B)
== END 2022-08-19 09:52 | disposition home or self-care (01) ==
LOC: DI 09:51
DX: Z12.31 Encounter for screening mammogram for malignant neoplasm of breast (principal)

== ENCOUNTER 2022-12-31 09:55 | Outpatient (CLI) | payer MEDICARE, OTHER ==
--- NOTE | 2022-12-31 10:27 | Sleep Patient Instructions ---
Sleep Center Visit Summary - Patient Visit Information Reason for Visit: Initial consult for evaluation of sleep disordered breathing and other sleep issues. - Patient Instructions Instructions Attached: Sleep Study, Sleep Clinic Visit Additional Instructions: You will be completing a sleep study, either an in-lab polysomnography (PSG) or home sleep study (HST). You will follow-up in the sleep care office after the sleep study is completed to hear the results and talk about therapy, if needed. You will be called by our office staff to schedule this appointment, but you may contact us with any questions. - Clinic Information Contact: [facility] [address] [place] [address] [email or web address] T: [phone]
--- NOTE | 2022-12-31 10:33 | SLEEP CARE CONSULTATION ---
Information from patient questionnaire entered by Kiera Nunez. I have reviewed and concur with the information entered by Kiera Nunez. This document represents the service I personally performed and the decisions made by me, Sharron Marie ARNP. History of Present Illness Service Date and Time: 12/31/2022 09 Reason for Visit: New patient Chief Complaint: reports: Excessive daytime sleepiness, Fatigue, Frequent awakenings at night Date of Onset: 1YR Usual bedtime: 11PM Time it takes to fall asleep: WITH SLEEPING PILL 10MIN Snores at night: No (don't know, sleep heavy) Observed to quit breathing while asleep: No Sleeps alone due to snoring: No Number of times waking at night: 3 Reasons for waking at night: reports: Pain, Bathroom. denies: Choking, Snoring, Gasping for air Toss, Turn, or Twitch while sleeping: Yes Recalls having dreams: Yes Feels refreshed in the morning: No Morning headache: No Sleepy or fatigued during the day: Yes Ever fallen asleep while driving: No Takes day naps: No Dreams during day naps: No Prior sleep studies: No Additional HPI information: I had the pleasure of seeing KENYETTA VILLA today regarding the possibility of her having a sleep disorder. Her current complaints are excessive daytime sleepiness, fatigue and frequent night awakenings. She states she has not been able to sleep well for a long time and takes a sleeping pill nightly, Zolpidem 5 mg, takes 1/2 pill. She averages 5 to 6 hours of sleep at night and wakes up feeling tired. She denies waking up with headaches. She states her sleeps heavily and could not tell her if she snores or not. She denies ever waking up gasping for air or for snoring. - Parasomnia Symptoms Ever been unable to move upon waking from sleep: No Walks in sleep: No Talks in sleep: No Ever acted out dreams in sleep: No Ever felt weak in the knees when startled or emotional: No Bothered by creepy, crawly, restless sensations in legs: No Problems with memory or concentration: No Subjective Initial [place] Sleepiness Scale score: 2 (12/07/22) Past Medical History Past Medical History: reports: Claustrophobia, Arthritis, Hypothyroidism, GERD Social History The patient's occupation is a RE. Patient is and lives in [place]. Have you smoked in the past 12 months: No Alcohol use: No Caffeine use: Yes Caffeine amount and frequency: 1 CUP Family History Family history of sleep disordered breathing: No ( does and is treated) Allergies and Home Medications Known drug allergies: Yes (VALIUM, DEMROL, EPI) Drug allergies reviewed: Yes Home medication list reviewed: Yes Allergy and home medication list: Allergies diazepam [From Valium] Allergy (Verified 12/30/22 09:08) Unknown meperidine [From Demerol] Allergy (Verified 12/30/22 09:08) Anaphylaxis epinephrine Adverse Reaction (Verified 12/30/22 09:08) Unknown Medications: Levothyroxine Vitamin D Omeprazole Zolpidem, 5 mg, 1/2 pill at bedtime Review of Systems Cardiovascular: reports: leg or foot swelling. denies: high blood pressure Gastrointestinal: reports: difficulty swallowing (associated with GERD, occasionally) Neurological: denies: headaches Psychiatric: reports: claustrophobia. denies: anxiety, depression Ear/Nose/Throat: reports: tonsillectomy, wisdom teeth removed Endocrine: reports: thyroid disease Musculoskeletal: reports: joint pain, neck pain, back pain, joint swelling, muscle pain or cramping, mobility problems Physical Exam Vital signs obtained and entered by: KIERA Constantino MA Blood Pressure: 120/70 (LEFT ARM) Cuff size: regular Heart Rate: 84 O2 Saturation: 92 Height: 5 ft 1 in Weight: 144 lb 6.4 oz Body Mass Index: 27.3 BMI Classification: Overweight Neck circumference: 14.75 Mouth and throat: narrow oropharynx Soft palate: long Hard palate: normal Uvula: normal Uvula visualization: 50% Mallampati Class II Tongue: normal in size Tonsils: absent bilaterally Neck: normal w/o lymphadenopathy or thyromegaly Heart: regular rate and rhythm Lungs: clear bilaterally Impression and Plan 1. Suspected Obstructive Sleep Apnea-Hypopnea Syndrome, as suggested by frequent awakening during the night, unrefreshed sleep, and excessive daytime sleepiness. Narrow oropharynx and obesity are common predisposing factors for obstructive sleep apnea-hypopnea syndrome. I recommend proceeding to polysomnography to confirm the diagnosis and to assess severity. Kenyetta is not sure that she wants to go through with a sleep study. I will go ahead and put the order through and she will call and let us know of her decision to complete the sleep study or not. I informed the patient of what the sleep studies involve. The pathophysiology of obstructive sleep apnea-hypopnea syndrome was discussed with the patient and health risks of cardiovascular and cerebrovascular disease if not treated. Risks of drowsy driving discussed in detail and patient advised to avoid long distance driving and to drum puller at the first sign of drowsiness. Patient agreed to plan. * Schedule polysomnography. * Avoid long distance driving or driving when feeling sleepy. * Attempt to lose weight. * Review instructions provided by trained office staff on how to prepare for the sleep study. * Return for follow-up after sleep study completed. Counseling Topics: Weight loss health impact Visit Type: In Office Time Spent with Patient (minutes): 35 Provider Statement: I spent 100% of the Face to Face Visit with the patient with greater than 50% spent counseling the patient and coordination of care.
[2022-12-31 10:41] VITALS: BP 120/70; O2SAT 92
== END 2022-12-31 09:56 | disposition home or self-care (01) ==
LOC: SC 09:55
PROVIDERS: ATTEND Nurse Practitioner Family
DX: G47.10 Hypersomnia, unspecified (principal); G47.8 Other sleep disorders; E66.3 Overweight; Z68.27 Body mass index [BMI] 27.0-27.9, adult
CPT/HCPCS: 99203; G0463; 99212

== ENCOUNTER 2023-08-28 14:39 | Outpatient (CLI) | payer MEDICARE, OTHER ==
--- NOTE | 2023-08-31 09:20 | Mammography Report ---
BILATERAL DIGITAL SCREENING MAMMOGRAM 3D/2D: 08/28/2023 CLINICAL: Routine screening. Comparison is made to exams dated: 08/19/2022 mammogram, 02/19/2021 mammogram, 12/12/2019 mammogram, mammogram, 09/15/2018 mammogram, and 08/18/2017 mammogram - [facility]. Both breasts are heterogeneously dense, which may obscure small masses (category c / 51-75% glandular tissue). There is a benign calcification in the left breast. There also are benign calcifications in the righ t breast. No significant masses, calcifications, or other findings are seen in either breast. There has been no significant interval change. IMPRESSION: BENIGN There is no mammographic evidence of malignancy. A 1 year screening mammogram is recommended. Based on the Tyrer Cuzick model (a risk assessment model) the patient's lifetime risk is 0.3% and her 10 year risk is 0.0%. According to the ACR, ACS, and NCCN guidelines, an annual breast MRI exam venice g with mammogram is recommended if the patient's lifetime risk is 20% or greater. This exam was interpreted at Station ID: [id number]. NOTE: For mammograms, a report in lay terms will be sent to the patient. Approximately 15% of breast malignancies will not be visualized mammographically. In the management of a palpable breast mass, a negative mammogram must not discourage biopsy of a clinically suspicious lesion. Electronically Signed By: Tricia lockett/damián:08/28/2023 17:29:00 letter sent: No_Letter ACR BI-RADS Category 2: Benign Finding(s) 3342F PARENCHYMAL PATTERN: (D) - The breast(s) demonstrate(s) heterogeneously dense fibroglandular parmelvin ma. BI-RADS CATEGORY: (2) - 2 RECOMMENDATION: (ANNUAL) - Recommend routine annual screening mammography. [id number] 1 year screening LATERALITY: (B)
== END 2023-08-28 14:40 | disposition home or self-care (01) ==
LOC: DI 14:39
DX: Z12.31 Encounter for screening mammogram for malignant neoplasm of breast (principal); R92.333 Mammographic heterogeneous density, bilateral breasts

== ENCOUNTER 2023-09-08 08:52 | Outpatient (CLI) | payer MEDICARE, OTHER ==
[2023-09-08 09:09] LABS: BASOPHILS # (AUTO) 0.1 10^3/uL (0.0-0.1); EOSINOPHILS # (AUTO) 0.3 10^3/uL (0.0-0.7); EOSINOPHILS % (AUTO) 4.1 %; HCT - HEMATOCRIT 48.4 % (37.0-47.0); HGB - HEMOGLOBIN 15.7 g/dL (12.0-16.0); LYMPHOCYTES # (AUTO) 2.3 10^3/uL (1.5-3.5); MEAN CORPUSCULAR HEMOGLOBIN 28.8 pg (27.0-31.0); MEAN CORPUSCULAR HGB CONC 32.4 g/dL (32.0-36.0); MEAN CORPUSCULAR VOLUME 88.6 fL (81.0-99.0); MEAN PLATELET VOLUME 8.1 fL (7.9-10.8); MONOCYTES # (AUTO) 0.5 10^3/uL (0.0-1.0); MONOCYTES % (AUTO) 7.6 %; NEUTROPHILS # (AUTO) 3.8 10^3/uL (1.5-6.6); PLT - PLATELET COUNT 289 10^3/uL (130-450); RED BLOOD COUNT 5.46 10^6/uL (4.20-5.40)
[2023-09-08 09:30] LABS: % IRON SATURATION 25 % (20-50); ALBUMIN/GLOBULIN RATIO 1.9 (1.0-2.2); ALKALINE PHOSPHATASE 102 IU/L (42-121); ALT ALANINE AMINOTRANSFERASE 13 IU/L (10-60); AST ASPARTATE AMINOTRANSFERASE 14 IU/L (10-42); BILIRUBIN,TOTAL 0.5 mg/dL (0.2-1.0); BUN - BLOOD UREA NITROGEN 18 mg/dL (6-20); CALCIUM 9.9 mg/dL (8.5-10.3); CARBON DIOXIDE - CO2 29 mmol/L (21-32); CHLORIDE 104 mmol/L (101-111); CHOL/HDL RATIO 3.6 (<4.4); CHOLESTEROL 231 mg/dL; CREATININE 0.8 mg/dL (0.6-1.3); CRP - C-REACTIVE PROTEIN < 0.5 mg/dL (<0.5); GFR - MDRD 68 (>89); GLUCOSE 95 mg/dL (74-104); HDL CHOLESTEROL 64 mg/dL; IRON 85 ug/dL (50-212); LDL CHOLESTEROL,CALCULATED 133 mg/dL; LDL/HDL RATIO 2.1 (<4.4); POTASSIUM 4.1 mmol/L (3.5-4.5); SODIUM 138 mmol/L (135-145); TOTAL IRON BINDING CAPACITY 339 ug/dL (250-450); TOTAL PROTEIN 6.1 g/dL (6.4-8.9); TRANSFERRIN 242 mg/dL (203-362); TRIGLYCERIDES 168 mg/dL (48-352); VLDL CHOLESTEROL 34 mg/dL
[2023-09-08 09:43] LABS: THYROID STIMULATING HORMONE 0.43 uIU/mL (0.34-5.60)
[2023-09-08 09:46] LABS: FERRITIN 89.6 ng/mL (11.0-306.8)
== END 2023-09-08 08:53 | disposition home or self-care (01) ==
LOC: LAB 08:52
PROVIDERS: ATTEND Internal Medicine
DX: R53.83 Other fatigue (principal); E03.9 Hypothyroidism, unspecified; Z13.220 Encounter for screening for lipoid disorders
CPT/HCPCS: 36415; 80053; 80061; 82728; 83540; 83721; 84443; 84466; 85025; 86140

== ENCOUNTER 2024-02-03 09:06 | Outpatient (CLI) | payer MEDICARE, OTHER | END 2024-02-03 09:07 | disposition home or self-care (01) | LOC: DI 09:06 | PROVIDERS: ATTEND Internal Medicine | DX: R53.83 Other fatigue (principal) | CPT/HCPCS: 93307 ==